=== PATIENT | male | born 1940 | race Caucasian/White ===

== ENCOUNTER 2017-03-06 01:27 | Inpatient (IN) | payer OTHER ==
[~2017-03-06] VITALS: Ht 162.6 cm; Wt 68.0 kg
[2017-03-06] VITALS (7 sets, daily range): BP systolic 135–195; BP diastolic 65–91
--- NOTE | ~2017-03-06 | HC ---
[facility] [place] [address] CONSULTATION Name: NEGAR BACA Room #: 351-P [facility] IN M.R.#: [id number] Admission: 03/06/17 Attend Phys: Noam Charles MD Discharge: Date of : 40 Report #: [id number] THIS REPORT FOR: //name// CC: FAM unknown Noam Charles CHIEF COMPLAINT: Urinary retention. HISTORY OF PRESENT ILLNESS: The patient is a 75-year-old gentleman who is being seen today at the request of Dr. Charles for evaluation and management of urinary retention, specifically he is hospitalized after being brought in by EMS. courtesy called and found him on the floor covered with urine and feces. He is not able to provide any meaningful history and was noted to have an elevated creatinine. ALLERGIES: Unknown. ILLNESSES: None. MEDICATIONS: Unknown. FAMILY HISTORY: Unknown. REVIEW OF SYSTEMS: Unobtainable. PHYSICAL EXAMINATION: GENERAL: He is lying in bed and appears comfortable. VITAL SIGNS: Temperature is 37.0, blood pressure is 118/73, pulse 59. ABDOMEN: Soft, without mass. He has a circumcised phallus with an indwelling Mcdermott catheter draining clear urine. He would not hold still for a digital rectal exam. LABORATORY DATA: Hemoglobin 13.2, hematocrit 38.6, platelets 370,000. Sodium 141, potassium 3.7, chloride 106, CO2 24, creatinine is 2.7. Urine from the Mcdermott revealed urine is slightly cloudy, specific gravity is less than 1.005, pH 5.5, negative for nitrites and bilirubin, 3-10 red cells, greater than 25 white cells. Renal ultrasound shows moderate hydroureter involving both collecting systems with thickening of the bladder wall. IMPRESSION: Chronic kidney disease with possible postobstructive diuresis. I suspect this is longstanding. PLAN: At this point, I would simply leave the Mcdermott in at the present time since he appears to have longstanding obstruction. Given his inability to follow commands, it would be difficult if not impossible for meaningful urologic [address] [place] [address] CONSULTATION Name: NEGAR BACA Room #: 351-P ADM IN M.R.#: [id number] Admission: 03/06/17 Attend Phys: Noam Charles MD Discharge: Date of : 40 Report #: [id number] evaluation. If his mental status is ever able to improve, I am happy to reassess this. Otherwise, I would simply leave the Mcdermott in, pending placement. <ELECTRONICALLY SIGNED> By: Karlo Mcdonald MD 03/13/17 0801 0713 0757 Karlo Mcdonald MD /nt
--- NOTE | ~2017-03-06 | 2DMMODE ---
[facility] [address] [place] [address] 2 D/M-MODE ECHOCARDIOGRAM Name: PHUONGNEGAR Room #: 351-P [facility] IN M.R.#: [id number] Admission: 03/06/17 Attend Phys: Noam Charles, Discharge: Date of : [birth year] Date of Service: 03/06/17 1247 Report #: [id number] THIS REPORT FOR: //name// APPROVED REPORT Study performed: 03/06/2017 11:25:14 EXAM: Comprehensive 2D, Doppler, and color-flow Echocardiogram Patient Location: Bedside Room #: [facility] Status: routine BSA: 1.73 HR: 74 bpm BP: 172/91 mmHg Other Information Study Quality: Adequate Indications Murmur 2D Dimensions RVDd: 33.74 mm LVEF(%): 73.44 (>50%) IVSd: 13.66 (7-11mm) LVOT Diam: 17.91 (18-24mm) LVDd: 43.70 mm PWd: 13.89 (7-11mm) Ascending Ao: 30.46 (22-36mm) LVDs: 25.27 (25-40mm) Aortic Root: 33.86 mm Duval's LVEF: 73.44 % Volumes Left Atrial Volume (Systole) Single Plane 4CH: 47.45 mL Single Plane 2CH: 49.29 mL LA ESV Index: 32.00 mL/m2 Aortic Valve AoV Peak Jason.: 2.47 m/s AO Peak Gr.: 24.47 mmHg LVOT Max P.18 mmHg AO Mean Gr.: 12.93 mmHg LVOT Mean P.66 mmHg AO V2 Mean: 1.63 m/s LVOT Max V: 1.44 m/s AO V2 VTI: 41.47 cm LVOT Mean V: 1.03 m/s IKE (VTI): 1.73 cm2 LVOT V1 VTI: 28.54 cm IKE Vmax: 1.46 cm2 SV (LVOT): 71.85 mL [facility] [address] [place] [address] 2 D/M-MODE ECHOCARDIOGRAM Name: NEGAR BACA Room #: 351-P [facility] IN M.R.#: [id number] Admission: 03/06/17 Attend Phys: Noam Charles, Discharge: Date of : [birth year] Date of Service: 03/06/17 1247 Report #: [id number] Mitral Valve E/A Ratio: 0.7 MV Decel. Time: 286.59 ms MV E Max Jason.: 0.84 m/s MV A Jason.: 1.13 m/s MV PHT: 83.11 ms IVRT: 119.95 ms Pulmonary Valve PV Peak Jason.: 1.09 m/s PV Peak Gr.: 4.78 mmHg Pulmonary Vein P Vein S: 0.58 m/s P Vein A: 0.16 m/s P Vein D: 0.43 m/s P Vein A Dur.: 87.7 msec P Vein S/D Ratio: 1.35 Tricuspid Valve TR Peak Jason.: 2.55 m/s TR Peak Gr.: 25.99 mmHg PA Pressure: 26.00 mmHg Left Ventricle The left ventricle is normal size. There is normal LV segmental wall motion. Mild concentric left ventricular hypertrophy. Left ventricular systolic function is hyperdynamic. LVEF is 65-70%. Grade I - abnormal relaxation pattern. Right Ventricle The right ventricle is normal size. The right ventricular systolic function is normal. Atria The left atrium size is normal. Right atrium is dilated. Aortic Valve Aortic valve is moderately calcified, trileaflet No aortic regurgitation is present. Mild aortic stenosis. Calculated aortic valve area is 1.5 cm2 with maximum pressure gradient of 24 mmHg and mean pressure gradient of 13 mmHg. Mitral Valve Mild mitral annular calcification Trace mitral regurgitation. No evidence of mitral valve stenosis. Tricuspid Valve The tricuspid valve is normal in structure[place] [address] 2 D/M-MODE ECHOCARDIOGRAM Name: NEGAR BACA Room #: 351-P [facility] IN M.R.#: [id number] Admission: 03/06/17 Attend Phys: Noam Charles, Discharge: Date of : [birth year] Date of Service: 03/06/17 1247 Report #: [id number] regurgitation. There is no pulmonary hypertension. Estimated PAP 26 mmHg plus the right atrial pressure. Pulmonic Valve The pulmonary valve is normal in structure. Mild pulmonic regurgitation. Great Vessels The aortic root is normal in size. IVC is not visualized. Pericardium There is no pericardial effusion. <Conclusion> Left ventricular systolic function is hyperdynamic. There is normal LV segmental wall motion. LVEF is 65-70%. Grade I diastolic dysfunction. Aortic valve is moderately calcified, trileaflet. Mild aortic stenosis, no insufficiency. Calculated aortic valve area is 1.5 cm2 with maximum pressure gradient of 24 mmHg and mean pressure gradient of 13 mmHg. Mild mitral annular calcification. Trace mitral regurgitation. There is no pericardial effusion. <ELECTRONICALLY SIGNED> By: Jeramie Clinton MD, FACC 03/06/17 1247 1247 124 Jeramie Clinton MD, FACC /INF
--- NOTE | ~2017-03-06 | HC ---
[facility] [place] [address] CONSULTATION Name: NEGAR BACA Room #: 351-P [facility] IN M.R.#: [id number] Admission: 03/06/17 Attend Phys: Noam Charles MD Discharge: 03/15/17 Date of : 40 Report #: [id number] THIS REPORT FOR: //name// CC: FAM unknown Noam Charles DATE OF SERVICE: 03/12/2017 HISTORY OF PRESENT ILLNESS: A 76-year-old white male who was checked in by the [employer] for a wellness check, was noted to have his home covered with feces. Apparently, he gave a history of not leaving the house for years. He had a cousin who apparently was bring food, but he was no longer allowing the cousin to visit. He was noted to be in acute renal failure likely secondary to decreased intake, rhabdomyolysis. MRI showed old lacunar infarcts. He was noted to have urinary retention. He was seen by Urology and recommended living the Mcdermott. There was documentation of a non-ST elevation [place]. We are seeing him now in rehabilitation medicine consultation. PAST MEDICAL HISTORY: He has not seen a physician in many years per notes. ALLERGIES: There is no note of any allergies. MEDICATIONS: Please see the full medication listing. SOCIAL HISTORY: As noted above. House, no steps. The cousin apparently was trying obtain durable power of staff attorney and was trying to look into further issues to assist the patient. REVIEW OF SYSTEMS: The patient's parent apparently and the patient continued to live in the house and was always noted to be "mentally slow". REVIEW OF SYSTEMS: No specific complaints of chest pain, shortness of breath or abdominal discomfort. PHYSICAL EXAMINATION: GENERAL: A 76-year-old white male in no obvious distress. VITAL SIGNS: Last recorded temperature is 98.2, pulse 70, respirations 20, blood pressure 115/70. NEUROLOGIC: He is alert. He can tell me the name of the place. He can follow basic one-step commands. Facies are symmetric. There is a definite latency to his responses. He does have functional range of motion of both upper extremities with strength grade 4-/5. DTRs are 1. Lower extremities, no focal calf swelling, functional range of motion, strength is grade 4-/5. Xgy-bv-[id number] is contact guard. Gait 120 feet contact guard with a front-wheeled walker. ASSESSMENT: A 76-year-old white male with the following problem list: [facility] [address] [place] [address] CONSULTATION Name: NEGAR BACA Room #: 351-P [facility] IN M.R.#: [id number] Admission: 03/06/17 Attend Phys: Noam Charles MD Discharge: 03/15/17 Date of : 40 Report #: [id number] 1. Generalized weakness and debilitation. 2. Acute renal insufficiency. 3. Bladder outlet obstruction. 4. Non-ST elevation myocardial infarction ?. 5. Rhabdomyolysis. 6. Hypertension. 7. Unsafe living situation. PLAN: Therapies are to continue working with him on improving strength, endurance, mobility and ADLs. Case management notes reviewed. Notes that the plan is for him to go to a nursing facility. I do not see that he would meet the acute inpatient rehabilitation criteria, but we will continue to follow along with you in the meantime. Thank you for asking us to assist in this patient's care. <ELECTRONICALLY SIGNED> By: Karlo Mir MD 03/19/17 1116 1417 2231 Karlo Mir MD /PMT
--- NOTE | ~2017-03-06 | HC ---
[facility] [place] [address] CONSULTATION Name: NEGAR BACA Room #: 351-P ADM IN M.R.#: [id number] Admission: 03/06/17 Attend Phys: Noam Charles MD Discharge: Date of : 40 Report #: [id number] THIS REPORT FOR: //name// CC: FAM unknown Noam Charles REASON FOR CONSULTATION: Elevated creatinine. REASON FOR PRESENTATION: Found down. HISTORY OF PRESENT ILLNESS: Really a very limited history given the patient's mental status. He is not able to provide me with any history. There are no family members around. The details were obtained from the charts; however, those are also scanty. The patient was found down by the EMS covered with urine and feces unfortunately and was brought to the emergency room for further evaluation and management. He does not know where he is. We are not really sure about any of his previous medical problems. No listed medications; however, this is not reliable. I cannot go into any further details of his history due to the limited information we have. On presentation, he was found to have an acute kidney injury. CPK was mildly elevated. He has a Mcdermott catheter. PAST MEDICAL HISTORY: Unobtainable given the patient's mental status. PAST SURGICAL HISTORY: Unobtainable given the patient's mental status. ALLERGIES: Unknown history. FAMILY HISTORY: Really unknown given the patient's mental status. REVIEW OF SYSTEMS: Completely unobtainable given the patient's mental status. FAMILY HISTORY: Unobtainable. SOCIAL HISTORY: Unobtainable. PHYSICAL EXAMINATION: GENERAL: He is just oriented to time, place, and person. VITAL SIGNS: Blood pressure is 140/70. He is afebrile. He is very cachectic and emaciated. HEAD AND NECK: Dry mucous membranes. CHEST: No crackles. CARDIOVASCULAR: Regular with no rub detected. ABDOMEN: Distended. LOWER EXTREMITIES: No edema. He has some chronic venous stasis changes. [facility] [address] [place] [address] CONSULTATION Name: ENGAR BACA Room #: 351-[facility] IN ..#: [id number] Admission: 03/06/17 Attend Phys: Noam Charles MD Discharge: Date of : 40 Report #: [id number] LABORATORY VALUES: Reviewed. Creatinine on presentation was 2.5 and has creeped up ever since the max of 3.____. By: 1442 1822 Jermain Molina MD /nt
--- NOTE | ~2017-03-06 | EKG ---
[address] [place] [address] ELECTROCARDIOGRAM REPORT Name: NEGAR BACA Room #: 351-P ADM IN M.R.#: [id number] Admission: 03/06/17 Attend Phys: Noam Charles MD Discharge: Date of : [birth year] Report #: [id number] THIS REPORT FOR: //name// [facility] ED Test Date: 2017-03-06 Test Time: 01:36:39 Pat Name: NEGAR BACA Department: Room: [facility] Gender: M [employer] Coordinator: HARJIT : 1941-07-06 Requested By: Bhanu Grimm Order Number: [id number] MD: Jeramie Clinton Measurements Intervals Cisco Rate: 109 P: 22 MO: 170 QRS: -32 QRSD: 92 T: 51 QT: 301 QTc: 406 Interpretive Statements Sinus tachycardia with frequent atrial premature complexes Left axis deviation Abnormal R-wave progression, early transition Minimal ST depression, anterior leads No previous ECG available for comparison Electronically Signed On 03-06-2017 8:04:54 CDT by Jeramie Clinton [email or web address] <ELECTRONICALLY SIGNED> By: Jeramie Clinton MD, [facility] 03/06/17 0804 5 Jeramie Clinton MD, [facility] /EPI
--- NOTE | ~2017-03-06 | HC ---
[facility] [place] [address] CONSULTATION Name: NEGAR BACA Room #: 351-P [facility] IN M.R.#: [id number] Admission: 03/06/17 Attend Phys: Noam Charles MD Discharge: Date of : 40 Report #: [id number] THIS REPORT FOR: //name// CC: FAM unknown Noam Charles DATE OF SERVICE: 03/08/2017 INDICATION FOR THE CONSULTATION: Elevated creatinine. REASON FOR PRESENTATION: Found down. HISTORY OF PRESENT ILLNESS: Very limited, the patient is confused, disoriented. There are no family members around, very scanty history about his past medical history. The patient was found down by the EMS when was brought to the Emergency Room where he was found to have elevated creatinine and mildly elevated CPK. I was asked to evaluate for the elevated creatinine. We really do not know anything about his past medical problems, his baseline kidney function, his medications and his family history. PAST MEDICAL HISTORY: Unknown given the patient's mental status on presentation. ALLERGIES: Unknown. PAST SURGICAL HISTORY: Unknown given the patient's presentation and mental status. FAMILY HISTORY: Unknown given the patient's presentation and acute mental status. SOCIAL HISTORY: Unknown given the patient's mental issues and presentation. REVIEW OF SYSTEMS: Completely unobtainable given the patient's mental status. PHYSICAL EXAMINATION: GENERAL: He is disoriented to time, place and person. VITAL SIGNS: Blood pressure is 140/70, he is afebrile. HEAD AND NECK: Emaciated and cachectic. Dry mucous membranes. CHEST: Clear to auscultation bilaterally. CARDIOVASCULAR: Regular with no rub detected. ABDOMEN: Soft, distended. LOWER EXTREMITIES: No edema with some venous stasis changes. LABORATORY DATA: Laboratory values reviewed. Sodium 128, mildly elevated CPK. [facility] [address] [place] [address] CONSULTATION Name: NEGAR BACA Room #: 351-P [facility] IN M.Barbara.#: [id number] Admission: 03/06/17 Attend Phys: Noam Charles MD Discharge: Date of : 40 Report #: [id number] ASSESSMENT, IMPRESSION AND PLAN: 1. Elevated creatinine with acute kidney injury. 2. Mildly elevated CPK. 3. Cachexia. 4. Debility. 5. Unknown previous medical history. 6. First and most important is to reach out his family members and try to obtain his medical history and his medications. 7. Obtain appropriate acute kidney injury workup. 8. This does not seem to be rhabdomyolysis given the mildly elevated CPK. 9. Given the hypernatremia, discontinue her bicarbonate drip. 10. Switch to hypotonic fluid. 11. Try to reach out his family or his primary care physician if we are able to. 12. Placement will be a major issue, we will continue to follow along. By: 1446 1847 Jermain Molina MD /nt
[2017-03-06 02:31] LABS: HEMATOCRIT 38.6 % (42.0-52.0); HEMOGLOBIN 13.2 gm/dL (14.0-18.0); MANUAL DIFF YES; MCH 32.2 pg (26.0-34.0); MCHC 34.1 g/dL (28.0-37.0); MCV 94.4 fL (80.0-100.0); PLATELET COUNT 370 thou/uL (150-400); RBC 4.09 mil/uL (4.50-6.00); RDW 14.2 % (10.5-14.5); WBC 10.2 thou/uL (4.0-11.0)
[2017-03-06 02:34] LABS: CALCIUM 9.9 mg/dL (8.5-10.1); CREATININE 2.7 mg/dL (0.7-1.3)
[2017-03-06 02:49] LABS: TROPONIN-I 0.44 ng/mL (<0.04-0.07)
[2017-03-06 03:05] LABS: ABSOLUTE NEUTROPHILS 9.5 thou/uL (1.4-8.2); TOTAL CELL COUNT 100
[2017-03-06 04:56] LABS: ALBUMIN 4.1 g/dL (3.4-5.0); DIRECT BILIRUBIN 0.2 mg/dL (<0.1-0.3); TOTAL BILIRUBIN 0.6 mg/dL (<0.1-1.0); TOTAL PROTEIN 8.5 g/dL (6.4-8.2)
[2017-03-06 05:00] LABS: PROTIME 10.7 Seconds (9.3-11.4)
[2017-03-07] VITALS (7 sets, daily range): BP systolic 130–177; BP diastolic 63–89
[2017-03-07 06:04] LABS: CHOLESTEROL 142 mg/dL (<200); HDL CHOLESTEROL 45 mg/dL (>40); LDL CHOLESTEROL 88 mg/dL (<100); TC:HDL 3.2 Ratio (Not establshd); TRIGLYCERIDE 48 mg/dL (<150); VLDL 10 mg/dL (<40)
[2017-03-07 08:11] LABS: ALBUMIN 2.8 g/dL (3.4-5.0); CALCIUM 8.9 mg/dL (8.5-10.1); CREATININE 2.8 mg/dL (0.7-1.3); POTASSIUM 3.4 mmol/L (3.5-5.1)
[2017-03-08 03:57] VITALS: BP 137/79
[2017-03-08 06:53] LABS: ALBUMIN 2.7 g/dL (3.4-5.0); CALCIUM 8.7 mg/dL (8.5-10.1); CREATININE 3.5 mg/dL (0.7-1.3); POTASSIUM 3.5 mmol/L (3.5-5.1)
[2017-03-08 08:23] VITALS: BP 147/85
[2017-03-08 11:40] LABS: URINE BILIRUBIN NEGATIVE (Negative); URINE BLOOD 1+ (Negative); URINE COLOR YELLOW; URINE GLUCOSE-RANDOM* NEGATIVE (Negative); URINE KETONES NEGATIVE (Negative); URINE NITRITE NEGATIVE (Negative); URINE PROTEIN (DIPSTICK) NEGATIVE (Negative); URINE SPECIFIC GRAVITY <= 1.005 (1.003-1.035); URINE UROBILINOGEN 0.2 E.U./dl (0.2-1.0)
[2017-03-08 11:48] LABS: AMORPHOUS URATES Moderate /LPF (None Seen); URINE WBC >25 Many /HPF (0-5)
[2017-03-08 11:49] LABS: CASTS None Seen /LPF (None Seen); SQUAMOUS None Seen /LPF (0-3); URINE RBC 3-10 Few /HPF (0-2)
[2017-03-08 12:51] LABS: URINE CREATININE-RANDOM* 47.9 mg/dL; URINE PROTEIN-RANDOM* 26.3 mg/dL (<11.9)
[2017-03-08 13:00] VITALS: BP 136/69
[2017-03-08 16:56] VITALS: BP 138/75
[2017-03-08 20:00] VITALS: BP 132/72
[2017-03-09 04:00] VITALS: BP 134/89
[2017-03-09 06:33] LABS: ALBUMIN 2.3 g/dL (3.4-5.0); CALCIUM 8.4 mg/dL (8.5-10.1); CREATININE 4.1 mg/dL (0.7-1.3); PHOSPHORUS 4.1 mg/dL (2.5-4.9); POTASSIUM 3.2 mmol/L (3.5-5.1)
[2017-03-09 08:03] VITALS: BP 149/80
[2017-03-09 12:15] VITALS: BP 137/75
[2017-03-09 15:46] VITALS: BP 127/64
[2017-03-09 19:18] VITALS: BP 145/70
[2017-03-10 03:26] VITALS: BP 144/91
[2017-03-10 04:59] LABS: ALBUMIN 2.5 g/dL (3.4-5.0); CALCIUM 8.5 mg/dL (8.5-10.1); CREATININE 3.9 mg/dL (0.7-1.3); PHOSPHORUS 4.1 mg/dL (2.5-4.9); POTASSIUM 3.1 mmol/L (3.5-5.1)
[2017-03-10 09:20] VITALS: BP 144/75
[2017-03-10 13:36] VITALS: BP 129/77
[2017-03-10 14:12] VITALS: BP 110/68
[2017-03-10 17:19] VITALS: BP 134/83
[2017-03-10 20:00] VITALS: BP 127/72
[2017-03-11 04:00] VITALS: BP 131/67
[2017-03-11 06:37] LABS: ALBUMIN 2.4 g/dL (3.4-5.0); CALCIUM 8.1 mg/dL (8.5-10.1); CREATININE 3.2 mg/dL (0.7-1.3); PHOSPHORUS 3.7 mg/dL (2.5-4.9); POTASSIUM 3.3 mmol/L (3.5-5.1)
[2017-03-11 07:10] VITALS: BP 121/75
[2017-03-11 08:00] VITALS: BP 129/78
[2017-03-11 12:00] VITALS: BP 129/78; BP 162/60
[2017-03-11 16:00] VITALS: BP 115/72
[2017-03-11 19:45] VITALS: BP 129/60
[2017-03-12 03:50] VITALS: BP 118/73
[2017-03-12 06:52] LABS: ALBUMIN 2.6 g/dL (3.4-5.0); CALCIUM 8.6 mg/dL (8.5-10.1); CREATININE 2.7 mg/dL (0.7-1.3); PHOSPHORUS 3.1 mg/dL (2.5-4.9); POTASSIUM 3.7 mmol/L (3.5-5.1)
[2017-03-12 07:59] VITALS: BP 131/68
[2017-03-12 11:53] VITALS: BP 115/70
[2017-03-12 16:10] VITALS: BP 118/65
[2017-03-12 19:20] VITALS: BP 112/66
[2017-03-13 04:45] VITALS: BP 109/73
[2017-03-13 04:55] VITALS: BP 113/39
[2017-03-13 07:11] LABS: ALBUMIN 2.8 g/dL (3.4-5.0); CALCIUM 8.6 mg/dL (8.5-10.1); CREATININE 2.6 mg/dL (0.7-1.3); PHOSPHORUS 3.2 mg/dL (2.5-4.9); POTASSIUM 3.6 mmol/L (3.5-5.1)
[2017-03-13 08:05] VITALS: BP 127/61
[2017-03-13 11:45] VITALS: BP 130/56
[2017-03-13 16:18] VITALS: BP 149/75
[2017-03-13 19:35] VITALS: BP 116/61
[2017-03-14 03:50] VITALS: BP 139/63
[2017-03-14 06:42] LABS: ALBUMIN 2.8 g/dL (3.4-5.0); CREATININE 2.4 mg/dL (0.7-1.3); POTASSIUM 3.8 mmol/L (3.5-5.1)
[2017-03-14 08:49] VITALS: BP 112/60
[2017-03-14 12:11] VITALS: BP 102/67
[2017-03-14 15:25] VITALS: BP 129/48
[2017-03-14 19:30] VITALS: BP 119/70
[2017-03-15 03:55] VITALS: BP 141/88
[2017-03-15 04:36] LABS: CALCIUM 9.1 mg/dL (8.5-10.1); CREATININE 2.3 mg/dL (0.7-1.3); PHOSPHORUS 3.4 mg/dL (2.5-4.9); POTASSIUM 4.2 mmol/L (3.5-5.1)
[2017-03-15 07:30] VITALS: BP 119/46
[2017-03-15] MEDS ORDERED: FLOMAX0.4 MG PO (11:10)
[2017-03-15] MEDS ORDERED: ASPIR 8181 MG PO (11:10)
[2017-03-15] MEDS ORDERED: PEPCID20 MG PO (11:10)
== END 2017-03-15 14:08 | DRG 280 ==
LOC: ER 01:27 → 3W 04:11 → EDBD 04:11 → EROBS 04:11 → 3W 04:48
PROVIDERS: Emergency Medicine; Hospitalist; Internal Medicine Nephrology; Nurse Practitioner Acute Care; Nurse Practitioner Gerontology
DX: I21.4 Non-ST elevation (NSTEMI) myocardial infarction (principal); E43 Unspecified severe protein-calorie malnutrition; N17.9 Acute kidney failure, unspecified; E87.0 Hyperosmolality and hypernatremia; N13.30 Unspecified hydronephrosis; R64 Cachexia; N18.9 Chronic kidney disease, unspecified; N32.0 Bladder-neck obstruction; I12.9 Hypertensive chronic kidney disease with stage 1 through stage 4 chronic kidney disease, or unspecified chronic kidney disease; E87.6 Hypokalemia; T79.6XXA Traumatic ischemia of muscle, initial encounter; I35.0 Nonrheumatic aortic (valve) stenosis; G31.84 Mild cognitive impairment of uncertain or unknown etiology; Z23 Encounter for immunization; Z86.73 Personal history of transient ischemic attack (TIA), and cerebral infarction without residual deficits; Z68.25 Body mass index [BMI] 25.0-25.9, adult
CPT/HCPCS: 10779

== ENCOUNTER 2020-05-25 09:36 | Emergency (ER) | payer MEDICARE, OTHER ==
[~2020-05-25] VITALS: Ht 177.8 cm; Wt 76.2 kg
--- NOTE | ~2020-05-25 | EMS ---
[address] [address] EMS Patient Care Report Name: NEGAR BACA Room #: PRE COLIN MZahida#: [id number] Admission: Attend Phys: Discharge: Date of : 40 Report #: [id number] THIS REPORT FOR: //name// Report Transmitted: 05/25/2020 09:19 EMS Care Summary [facility] MED-ACT Incident [id number] @ 05/25/2020 09:01 Incident Location [address] [place] [address] Patient NEGAR BACA Male, 79 Years 1940 Patient Address [address] [place] [address] Patient History Hypertension (HTN),Stroke/CVA,Gastro-Esophageal Reflux Disease (GERD),Atrial Fibrillation,Hypothyroidism, Patient Allergies No known allergies, Patient Medications ASA, Levothyroxine, Xarelto, Vitamin B12, Flomax, Vitamin D, Amlodipine, Chief Complaint Hematuria Disposition Transported No Lights/[place] Reason Hemorrhage/Laceration Transported To [facility] Narrative This 79 year-old male patient is a resident at [facility]. [address] [address] EMS Patient Care Report Name: NEGAR BACA Room #: [facility].Barbara.#: [id number] Admission: Attend Phys: Discharge: Date of : 40 Report #: [id number] Staff stated that he has a zuniga catheter due to prostate CA that is not being treated. Staff also reported that his zuniga was changed yesterday which resulted in having hematuria. His catheter was changed again this morning with the same result (emptied about 1000 ml bloody urine from bag this morning) so he is being sent to the hospital for further evaluation. Although he denied having any pain anywhere, staff reported that he is mentally delayed and it is not uncommon for him to answer, "Yes" to most questions. He is acting his norm this morning. Upon our arrival the patient was standing in his room with a nursing staff member on either side of him. He sat on the cot and secured while report was being obtained from nursing staff. After being moved to the MICU, we were advised that his hospital of choice, [facility], was on high volume, so his primary emergency contact was called who advised us to transport the patient to [facility]. Although no changes were noted in his condition throughout transport, he did cough up some white phlegm. Upon our arrival to to the hospital, the patient was moved to the ED bed in room 2 via lateral sheet drag and report was given to the RN. Initial Vitals @:19P: 103,R: 14,BP: 181/102,Temp: 99.4F, @:P: 104,R: 14,BP: 184/95,Pain: 0/10,GCS: 14,SpO2: 94,Revised Trauma: 12, @PTAP: 101,R: 14,BP: 190/100, Assessments @09:27MENTAL:Person Oriented,SKIN:HEENT:Head/Face: No Abnormalities,Neck/Airway: No Abnormalities,LUNG SOUNDS:ABDOMEN:PELVIS//GI:Pelvis GUOther,EXTREMITIES:Left Arm: No Abnormalities,Right Arm: No Abnormalities,Left Leg: No Abnormalities,Right Leg: No Abnormalities,PULSE:NEURO: Impression Hemorrhage Procedures @09:27Surgical Mask on PatientResponse: Unchanged Timeline MOLDER OPERATOR,BP: 190/100 M,PULSE: 101,RR: 14 R,SPO2: Ox,ETCO2: ,BG: ,PAIN: ,GCS: , 08:59,Call Received 08:59,Psap Call 09:01,Dispatched 09:02,En Route 09:07,On Scene 09:11,At Patient 09:15,Depart Scene [address] [address] EMS Patient Care Report Name: NEGAR BACA Room #: PRE M.R.#: [id number] Admission: Attend Phys: Discharge: Date of : 40 Report #: [id number] 09:19,BP: 181/102 M,PULSE: 103,RR: 14 R,SPO2: Ox,ETCO2: ,BG: ,PAIN: ,GCS: , 09:27,BP: 184/95 M,PULSE: 104,RR: 14 R,SPO2: 94 Ox,ETCO2: ,BG: ,PAIN: 0,GCS: 14, 09:27,Surgical Mask on Patient,Response: Unchanged 09:31,At Destination 09:50,Call Closed Disclaimer v1.1 Copyright 2020 [employer] This EMS Care Summary contains data elements from the applicable legal record (which may be displayed differently). It is designed to provide pertinent information for the following purposes: continuity of care, clinical quality, and state data reporting. The complete legal record is available to ED staff and administrators of the receiving hospital in [employer]'s Patient Tracker. All data is provided "as is."
[~2020-05-25 09:36] MED LIST: ASPIR 8181 MG PO; FLOMAX0.4 MG PO; PEPCID20 MG PO
[2020-05-25 10:10] LABS: URINE BLOOD 3+ (Negative); URINE CLARITY CLOUDY; URINE COLOR BROWN; URINE GLUCOSE-RANDOM* NEGATIVE (Negative); URINE KETONES TRACE (Negative); URINE PROTEIN (DIPSTICK) 2+ (Negative); URINE SPECIFIC GRAVITY 1.025 (1.005-1.035)
[2020-05-25 10:12] LABS: URINE LEUKOCYTES-REFLEX 2+ (Negative); URINE NITRITE-REFLEX POSITIVE (Negative)
[2020-05-25 10:13] LABS: ICTOTEST (BILI CONFIRMATORY) Negative (Negative); URINE BILIRUBIN NEGATIVE (Negative)
[2020-05-25] MEDS ORDERED: AMIODARONE HCL400 MG PO (10:21)
[2020-05-25] MEDS ORDERED: NORVASC 2.5 MG2.5 M1 PO (10:22)
[2020-05-25 10:23] LABS: CASTS None Seen /LPF (None Seen); CRYSTALS None Seen /LPF (None Seen); SQUAMOUS 0-3 Few /LPF (0-3)
[2020-05-25] MEDS ORDERED: VITAMIN D250 MCG PO (10:23)
[2020-05-25] MEDS ORDERED: LEVO-T50 MCG PO (10:23)
[2020-05-25 10:25] LABS: URINE WBC-REFLEX 0-5 Rare /HPF (0-5)
[2020-05-25] MEDS ORDERED: XARELTO15 MG PO (10:25)
[2020-05-25 10:26] LABS: YEAST-REFLEX Present (None Seen)
[2020-05-25] MEDS ORDERED: VITAMIN B-121000 MC2 PO (10:26)
[2020-05-25 11:17] LABS: ABSOLUTE NEUTROPHILS 12.5 thou/uL (1.4-8.2); BASOPHILS 0.1 % (0.0-2.0); EOSINOPHILS 0.1 % (0.0-3.0); HEMATOCRIT 46.5 % (42.0-52.0); HEMOGLOBIN 15.4 gm/dL (14.0-18.0); LYMPHOCYTES 2.3 % (24.0-44.0); MCH 31.8 pg (26.0-34.0); MCHC 33.1 g/dL (28.0-37.0); MONOCYTES 5.3 % (1.0-8.0); PLATELET COUNT 246 thou/uL (150-400); POLYS 92.2 % (36.0-66.0); RBC 4.84 mil/uL (4.50-6.00); RDW 14.8 % (10.5-14.5); WBC 13.5 thou/uL (4.0-11.0)
[2020-05-25 11:24] LABS: CALCIUM 9.7 mg/dL (8.5-10.1); POTASSIUM 4.2 mmol/L (3.5-5.1)
[2020-05-25 11:31] LABS: APTT 27.7 Seconds (24.5-32.8); INR 1.1; PROTIME 11.4 Seconds (9.3-11.4)
[2020-05-25] MEDS ORDERED: CEFDINIR300 MG PO (12:46)
[2020-05-25 20:25] VITALS: BP 131/67
== END 2020-05-25 23:07 ==
LOC: ER 09:36
PROVIDERS: Emergency Medicine
DX: T83.518A Infection and inflammatory reaction due to other urinary catheter, initial encounter (principal); Z20.828 Contact with and (suspected) exposure to other viral communicable diseases; N39.0 Urinary tract infection, site not specified; I12.9 Hypertensive chronic kidney disease with stage 1 through stage 4 chronic kidney disease, or unspecified chronic kidney disease; N18.9 Chronic kidney disease, unspecified; K21.9 Gastro-esophageal reflux disease without esophagitis; Z79.82 Long term (current) use of aspirin; Z79.899 Other long term (current) drug therapy; Y92.89 Other specified places as the place of occurrence of the external cause